=== PATIENT | male | born 1960 | race Caucasian/White ===

== ENCOUNTER 2017-06-02 12:28 | Day surgery (SDC) | payer BC ==
[2017-06-01 13:21] VITALS: BMI 25.4
[~2017-06-02] VITALS: Ht 170.2 cm; Wt 68.9 kg
[~2017-06-02 12:28] MED LIST: ALLO300T2 PO; ATOR20TA38 PO; CITA10TA84 PO
[2017-06-02] MEDS ORDERED: ATOR10TA65 PO (12:53)
[2017-06-02] MEDS ORDERED: SOD CHLORIDE 0.9% 1,000 ML IV ONE (13:00)
[2017-06-02] MEDS ORDERED: CEFAZOLIN 2 GM/50 ML (PMX) 50 ML IVPB ONE (13:00)
[2017-06-02 13:22] LABS: BASOPHILS % 0.4 % (0.0-2.0); EOSINOPHILS # 0.1 10^3/ul (0.0-0.5); HEMATOCRIT 45.9 % (42.0-52.0); HEMOGLOBIN 15.9 g/dl (14.0-18.0); LYMPHOCYTES # 1.1 10^3/ul (0.8-2.9); MEAN CORPUSCULAR HEMOGLOBIN 31.1 pg (29.0-33.0); MEAN CORPUSCULAR HGB CONC 34.6 g/dl (32.0-37.0); MEAN CORPUSCULAR VOLUME 89.6 fl (82.0-101.0); MEAN PLATELET VOLUME 9.8 fl (7.4-10.4); MONOCYTE # 0.4 10^3/ul (0.3-0.9); MONOCYTES % 7.5 % (0.0-11.0); NEUTROPHIL # 3.3 10^3/ul (1.6-7.5); NEUTROPHILS % 68.9 % (39.0-77.0); PLATELET COUNT 185 10^3/UL (140-415); RED BLOOD COUNT 5.12 10^6/ul (4.70-6.10); RED CELL DISTRIBUTION WIDTH 11.9 % (11.5-14.5); WHITE BLOOD COUNT 4.8 10^3/ul (4.8-10.8)
--- NOTE | 2017-06-02 13:26 | RADRPT ---
PROCEDURE: XR Chest. CLINICAL INDICATION: Preoperative TECHNIQUE: Single frontal view of the chest was obtained COMPARISON: None FINDINGS: The heart and mediastinum are within normal limits. The lungs are clear. There is no pleural effusion or pneumothorax. RPTAT: AA IMPRESSION: No acute disease. .Zachariah Umanzor MD, Date Time Electronically viewed and signed by .Zachariah Umanzor MD, on 06/02/2017 13:26 .S/
[2017-06-02 13:27] VITALS: Ht 170.2 cm; Wt 68.9 kg
[2017-06-02 13:31] VITALS: BP 109/65; PULSE 65; RESP 15
[2017-06-02 13:36] LABS: INR 1.09; PROTIME 14.1 Sec (12.2-14.2); PT RATIO 1.1
[2017-06-02 13:37] LABS: PARTIAL THROMBOPLASTIN TIME 31.7 Sec (25.0-35.0)
[2017-06-02 13:41] LABS: ALBUMIN 4.1 g/dl (3.3-4.9); ALBUMIN/GLOBULIN RATIO 1.64; BILIRUBIN,INDIRECT 1.2 mg/dl (0-1.1); BILIRUBIN,TOTAL 1.2 mg/dl (0.2-1.3); TOTAL PROTEIN 6.6 g/dl (6.1-8.1)
[2017-06-02 13:42] LABS: CALCIUM 9.4 mg/dl (8.4-10.2); CREATININE 0.96 mg/dl (0.61-1.24); POTASSIUM 4.2 mmol/L (3.5-5.1)
[2017-06-02] MEDS ORDERED: IOHEXOL 300MG/ML 150 ML BTL ONE (16:15)
[2017-06-02] MEDS ORDERED: SOD CHLORIDE 0.9% 100 ML ONE (16:15)
--- NOTE | 2017-06-02 17:00 | RADRPT ---
PROCEDURE: CT abdomen and pelvis with contrast. CLINICAL INDICATION: Gallbladder mass. TECHNIQUE: CT scan of the abdomen and pelvis with contrast was performed after the uneventful intrav enous administration of 90 cc of Omnipaque-300. Coronal and sagittal reformatted images were obtaine d from the axial source images. The total exam CTDI equals 7.76 mGy and the total exam DLP equals 42 7.08 mGy-cm. DICOM images are available. One or more of the following dose reduction techniques were used: - Automated exposure control. - Adjustment of the mA and/or kV according to patient size. - Use of iterative reconstruction technique. COMPARISON: None available. FINDINGS: Visualized lower thorax: The visualized lung bases are clear. The visualized heart is unremarkable. Hepatobiliary system and spleen: There is an indeterminate 2.6 cm hypodense lesion that appears to demonstrate peripheral nodular enhancement in segment 7 of the liver. No additional focal hepatic le last is identified. There is no intra or extrahepatic biliary ductal dilatation. There is an approxi mately 13 mm hyperdense lesion at the gallbladder fundus. There are no radiopaque gallstones. The sp kevin is unremarkable. The pancreas is unremarkable. Adrenal glands and genitourinary system: The adrenal glands are unremarkable. There are no renal ma sses or hydronephrosis. The urinary bladder is unremarkable. The prostate gland is enlarged measurin g 5.8 cm in diameter. The seminal vesicles are unremarkable. Gastrointestinal system: There is no bowel wall thickening or evidence of obstruction. The appendix is not identified, but there is no focal inflammatory process in the right lower quadrant. Peritoneum, vascular system, lymphatics: There is trace free fluid layering within the pelvis. Ther e is no free intraperitoneal air. There is no mesenteric or retroperitoneal adenopathy. There are at herosclerotic changes of the aorta, which is nonaneurysmal. Musculoskeletal system and soft tissues: There are multilevel Schmorl's nodes throughout the thorac olumbar spine. There are no concerning osseous lesions. The soft tissues are unremarkable. IMPRESSION: 1. Hyperdense 11 mm lesion at the gallbladder fundus, which is nonspecific. Right upper quadrant ul trasound is recommended for further evaluation. 2. Indeterminate 2.6 cm lesion in segment 7 of the liver with imaging characteristics suggestive of a hemangioma. This can also be further characterized with ultrasound. 3. Enlarged prostate gland. Correlate with PSA. 4. Trace free fluid layering within the pelvis, which is nonspecific. RPTAT: HLBP .Fawad Mcmahon MD, Date Time Electronically viewed and signed by .Fawad Mcmahon MD, on 06/02/2017 17:00 .P/
--- NOTE | 2017-06-03 13:18 | RADRPT ---
Vent Rate: 64 bpm RR Interval: 0 msec NH Interval: 150 msec QRS Duration: 94 msec QT Interval: 392 msec QTC Interval: 404 msec P-R-T [place]: 56 - 84 - 66 degrees Normal sinus rhythm Normal ECG Electronically Signed By: Fito Gary [id number]
== END 2017-06-02 16:50 | disposition home or self-care (01) ==
LOC: SUR 12:28 → SDS 12:28 → SUR 16:50
PROVIDERS: ATTEND Surgery Surgical Oncology
DX: K82.9 Disease of gallbladder, unspecified (principal); Z53.9 Procedure and treatment not carried out, unspecified reason
CPT/HCPCS: 71010; 74177; 80053; 85025; 85610; 85730; 93005; Q9967; Z7610

== ENCOUNTER 2017-06-30 08:44 | Inpatient (IN) | payer BC ==
[2017-06-29 12:49] VITALS: BMI 26.0
[2017-06-30] VITALS (36 sets, daily range): BP systolic 111–139; BP diastolic 66–89; PULSE 54–80; RESP 7–18; Ht 175.3 cm; Wt 71.3 kg
[~2017-06-30] VITALS: Ht 175.3 cm; Wt 71.3 kg
[~2017-06-30 08:44] MED LIST changes: +ATOR10TA65 PO; -ATOR20TA38 PO; +CEFAZOLIN 2 GM/50 ML (PMX) 50 ML IVPB SCH; +SOD CHLORIDE 0.9% 1,000 ML IV SCH
[2017-06-30 10:02] LABS: BASOPHILS % 0.4 % (0.0-2.0); EOSINOPHILS % 0.8 % (0.0-7.0); HEMOGLOBIN 15.4 g/dl (14.0-18.0); LYMPHOCYTES % 20.4 % (15.0-51.0); MEAN CORPUSCULAR HEMOGLOBIN 31.2 pg (29.0-33.0); MEAN CORPUSCULAR VOLUME 89.1 fl (82.0-101.0); MEAN PLATELET VOLUME 10.1 fl (7.4-10.4); MONOCYTE # 0.4 10^3/ul (0.3-0.9); MONOCYTES % 7.5 % (0.0-11.0); NEUTROPHIL # 3.4 10^3/ul (1.6-7.5); NEUTROPHILS % 70.7 % (39.0-77.0); PLATELET COUNT 216 10^3/UL (140-415); RED BLOOD COUNT 4.94 10^6/ul (4.70-6.10); RED CELL DISTRIBUTION WIDTH 12.1 % (11.5-14.5); WHITE BLOOD COUNT 4.8 10^3/ul (4.8-10.8)
[2017-06-30 10:16] LABS: ALBUMIN 3.8 g/dl (3.3-4.9); ALBUMIN/GLOBULIN RATIO 1.31; BILIRUBIN,INDIRECT 1.1 mg/dl (0-1.1); BILIRUBIN,TOTAL 1.1 mg/dl (0.2-1.3); TOTAL PROTEIN 6.7 g/dl (6.1-8.1)
[2017-06-30 10:17] LABS: CALCIUM 9.5 mg/dl (8.4-10.2); CREATININE 0.86 mg/dl (0.61-1.24); POTASSIUM 4.2 mmol/L (3.5-5.1)
[2017-06-30 10:20] LABS: INR 1.03; PROTIME 13.6 Sec (11.9-14.9); PT RATIO 1.1
[2017-06-30] MEDS ORDERED: PROPOFOL 20 ML ONE (10:27)
[2017-06-30] MEDS ORDERED: MEPERIDINE 100 MG INJ ONE (10:27)
[2017-06-30] MEDS ORDERED: GLYCOPYRROLATE 0.4 MG INJ ONE ×2 (10:27→12:08)
[2017-06-30] MEDS ORDERED: ROCURONIUM 50 MG INJ ONE ×2 (10:27→12:08)
[2017-06-30] MEDS ORDERED: LIDOCAINE 2% (SDV) 5 ML INJ ONE (10:27)
[2017-06-30] MEDS ORDERED: SUCCINYLCHOLINE CHLORIDE 100 MG/5 ML SYG IV ONE (10:27)
[2017-06-30] MEDS ORDERED: NEOSTIGMINE 3 MG/3 ML SYRINGE ONE ×2 (10:27→12:08)
[2017-06-30] MEDS ORDERED: HYDROmorphONE (0.2 MG/ML) 10ML SYG IV PRN ×2 (11:00)
[2017-06-30] MEDS ORDERED: METOCLOPRAMIDE 10 MG INJ IV PRN (11:00)
[2017-06-30] MEDS ORDERED: OXYCODONE/ACETAMINOPHEN (5/325) TAB PO PRN ×2 (11:00)
[2017-06-30] MEDS ORDERED: MEPERIDINE 25 MG INJ IV PRN (11:00)
[2017-06-30] MEDS ORDERED: LABETALOL HCL 20MG INJ IV PRN (11:00)
[2017-06-30] MEDS ORDERED: DIPHENHYDRAMINE 50 MG INJ IV PRN (11:00)
[2017-06-30] MEDS ORDERED: EPHEDrine SULFATE 50 MG/5 ML SYG IV PRN (11:00)
[2017-06-30] MEDS ORDERED: ONDANSETRON 4 MG INJ IV PRN (11:00)
[2017-06-30] MEDS ORDERED: MIDAZOLAM 1 MG/ML 2 ML INJ IV PRN (11:00)
[2017-06-30] MEDS ORDERED: hydrALAzine 20 MG INJ IV PRN (11:00)
[2017-06-30] MEDS ORDERED: FENTAnyl 50 MCG/ML VIAL IV PRN ×3 (11:00)
[2017-06-30] MEDS ORDERED: CEFAZOLIN 1 GM INJ ONE (11:05)
[2017-06-30] MEDS ORDERED: SUGAMMADEX SODIUM 200 MG/2 ML VIAL IV ONE (12:23)
--- NOTE | 2017-06-30 12:43 | SIPON ---
Date/Time of Note Date/Time of Note DATE: 06/30/17 TIME: 12:41 Operative Report Preoperative Diagnosis Gallbladder mass Postoperative Diagnosis Same Operation/Procedure Performed Laparoscopic cholecystectomy with en bloc resection of portion of liver and gallbladder fossa Surgeon see signature line ward assistant Dr Babcock Anesthesia: general Estimated blood loss: 10 - 50 ml's Transfusion Required none Specimen Gallbladder with attached portion of liver from gallbladder fossa Grafts/Implants none Complications none ANASTACIO DRAPER MD Jun 30, 2017 12:43
[2017-06-30] MEDS: HYDROmorphONE (0.2 MG/ML) 10ML SYG IV PRN ×5 (12:57→13:39)
[2017-06-30] MEDS ORDERED: ACETAMINOPHEN 1000MG/100ML IV 100 ML IVPB PRN (13:00)
--- NOTE | 2017-06-30 16:51 | RADRPT ---
PROCEDURE: XR Chest. CLINICAL INDICATION: Preoperative evaluation. TECHNIQUE: Chest x-ray, single view. COMPARISON: CHEST 06/02/2017. FINDINGS: The cardiomediastinal silhouette is normal. The lungs are clear. Skeletal structures are unremarka ble. The visualized upper abdomen is unremarkable. IMPRESSION: Unremarkable chest x-ray. RPTAT: AAQQ .Brenda Arias MD, MD Date Time Electronically viewed and signed by .Brenda Arias MD, on 06/30/2017 09:45 .T/
--- NOTE | 2017-06-30 16:55 | OPR ---
DATE OF OPERATION: 06/30/2017 PREOPERATIVE DIAGNOSIS: Mass fundus of gallbladder, rule out malignancy. POSTOPERATIVE DIAGNOSIS: Mass fundus of gallbladder, rule out malignancy. OPERATION PERFORMED: Laparoscopic cholecystectomy with en bloc resection of portion of the gallblad marleny fossa. ANESTHESIA: General. ANESTHESIOLOGIST: MELISSA Pittman MD SURGEON: Pedro Pablo Lubin MD DIRECTOR OF DIRECT MARKETING: Dr. iTmo Hansen. INDICATIONS FOR PROCEDURE: The patient is a 57-year-old male who presented with right upper quadran t pain. Workup with MRI revealed evidence of an enhancing 1.4 cm mass in the fundus within the gall bladder. A CAT scan was also performed and again confirmed the mass with no definite evidence of ly mphadenopathy. The patient was counseled as to need for en bloc resection of the gallbladder with a portion of the liver. He was counseled on possibility to accomplish this laparoscopically, but he was also consented for possible conversion to open. He consented and was scheduled for surgery. DESCRIPTION OF PROCEDURE: The patient was brought to the operating theater, placed under general en dotracheal tube anesthesia. The abdomen was shaved, prepped and draped in usual sterile fashion. A 2-cm incision was made in the midline just above the umbilicus. Subcutaneous tissue was dissected with cautery down to the anterior rectus sheath, 0 Vicryl stay sutures were placed on either side of the linea alba. The linea alba was incised and the abdomen was entered without difficulty. Ralph trocar was then placed in standard fashion. The abdomen was insufflated to approximately 14 mmHg w ith carbon dioxide. Laparoscope was introduced. Attention was directed to the right upper quadrant . The 3 accessory ports were then placed under direct vision in standard fashion. Attention was then directed to the right upper quadrant. The gallbladder was identified, it was olga ewhat thickened wall with omental adhesions. It was grasped through the lateral port sites on the f undus and neck and retracted cephalad and lateral with combination of blunt dissection and cautery. The adhesions were taken down. The peritoneum overlying the gallbladder was then incised both medi ally and laterally to facilitate mobilization of the triangle of [place]. With meticulous dissection, the cystic duct was isolated. Two clips were placed across it distally. It was then transected wi th the endovascular FABRICIO stapler. Subsequently, cystic artery was isolated. Two clips were placed a cross it distally and it also was transected with endovascular FABRICIO stapler. Dissection of the gallb ladder out of the gallbladder fossa took place at a distance approximately 1 to 2 cm beyond the neck of the gallbladder. Dissection of the liver bed in the region of the gallbladder fossa took place using cautery in an effort to ensure a margin of liver tissue around the region of the polyp. This was accomplished with meticulous dissection that took place uneventfully. The final connective tiss ue attachments to the gallbladder were then transected. The laparoscope was moved to the 12-mm subc ostal port site, and the gallbladder was retrieved from the umbilical port site using the gallbladde r retrieval bag. The Ralph trocar was placed back into the abdomen. The laparoscope was moved kirt k to the umbilical port. The liver bed was inspected. Minimal bleeding was controlled with cautery . At this point, Dr. Lubin call pathology into the room grossly analyze the gallbladder. Gallbladd er was opened and the polyp was identified. It did not have classically malignant features and due to the fact that adequate margin of liver was also resected, Dr. Lubin made the decision that no fur ther liver resection was necessary. The gallbladder was then sent for permanent pathologic analysis . Final irrigation and inspection took place. There was no evidence of bleeding. The 3 accessory ports were then removed under direct vision. Again, there was no evidence of bleeding. Finally, th e umbilical port was removed. The midline umbilical fascia was reapproximated with 0 Prolene suture s in [id number] fashion. All wounds were irrigated with Betadine and skin incisions were reapp roximated with skin nila. Patient tolerated procedure well. The estimated blood loss was approx imately 20 mL. There were no complications and the patient was transported in stable condition to [facility] recovery room. Dictated By: PEDRO PABLO LUBIN MD TL/ALBIN Conf#: [id number] DID#: [id number] CC: TIMO HANSEN MD;*EndCC*
[2017-06-30] MEDS: D5W-0.45 NACL + KCL 20 MEQ 1,000 ML IV SCH ×2 (17:39→20:43)
[2017-06-30] MEDS: morphine 2 MG INJ IV PRN ×2 (17:41→21:10)
[2017-06-30] MEDS: ONDANSETRON 4 MG INJ IV PRN (17:55)
--- NOTE | 2017-06-30 20:18 | HP ---
DATE OF ADMISSION: 06/30/2017 HISTORY OF PRESENT ILLNESS: The patient is a very pleasant 57-year-old gentleman with past medical history positive for hepatitis B, gout and hyperlipidemia. Patient was undergoing MRI scan for eval uation of liver due to history of hepatitis, and patient was found to have enhancing mass in the gal lbladder, which was worrisome for malignancy. The patient was evaluated by Dr. Lubin in surgical co nsultation, and patient was brought to the hospital and underwent laparoscopic cholecystectomy with en bloc resection of portion of liver and gallbladder fossa. Postoperatively, patient experienced m oderate pain, and patient is admitted for further evaluation and management. PAST MEDICAL HISTORY: Positive for hepatitis B, hypercholesterolemia and gout. PAST SURGICAL HISTORY: Patient is status post appendectomy more than 40 years ago, and status post colonoscopy by Dr. Patterson in December 2015 with notion of hemorrhoids. FAMILY HISTORY: Negative for history of cancer. SOCIAL HISTORY: The patient lives at home with his family. The patient denies any tobacco use, den ies any alcohol use, denies any illicit drug use. ALLERGIES: NO KNOWN ALLERGIES. HOME MEDICATIONS: Include: 1. Allopurinol. 2. Atorvastatin. 3. Citalopram. REVIEW OF SYSTEMS: A 12-point review of systems is negative unless what is mentioned in the HPI. PHYSICAL ASSESSMENT: GENERAL: Well-developed, well-nourished male in no acute distress. VITAL SIGNS: Temperature is 97.7, pulse is 84, blood pressure is 137/84, respiratory rate 18, oxyge n saturation 96% on room air. HEENT: Head is atraumatic, normocephalic. Pupils equal, round, reactive to light and accommodation . Oral mucosa is pink and moist. NECK: Supple. No cervical lymphadenopathy. No thyromegaly. CHEST: Lungs clear bilaterally. There are no rhonchi, wheezes or rales noted. CARDIOVASCULAR: Normal S1, S2. No murmurs, gallops, clicks, rubs noted. ABDOMEN: Status post surgery with laparoscopic surgical incisions intact with bandages. Bowel soun ds are hypoactive. EXTREMITIES: No edema, clubbing, cyanosis. Pulses equal bilaterally 2+. SKIN: There is no rash, petechiae noted. NEUROLOGIC: Patient is awake, alert and oriented x4. No focal deficits noted. Motor strength 5/5 in all extremities. LABORATORY DATA: On admission, CBC: White blood cells 4.8, hemoglobin 15.4, hematocrit 44.0, plate lets 216. Chemistry: Sodium is 141, potassium 4.2, chloride 106, carbon dioxide 28, anion gap is 1 1, BUN is 9, creatinine 0.86, glucose 103, calcium 9.5, AST is 47, ALT is 59, alkaline phosphatase 6 5. PT is 13.6, INR is 1.03, APTT is 31.0. Chest x-ray is unremarkable. ASSESSMENT AND PLAN: 1. Gallbladder mass, status post laparoscopic cholecystectomy with en bloc resection of portion of liver and gallbladder fossa by Dr. Lubin on 06/30/2017. I will continue IV fluids and postoperative antibiotics. Continue Zofran for nausea and morphine and [place] p.r.n. for pain. We will follow up on gallbladder mass pathology. 2. Hyperlipidemia. 3. Gout. 4. History of hepatitis B. Plan of care discussed with patient and patient's at the bedside. We will continue sequential compression device for deep venous thrombosis prophylaxis. Further recommendations based on clinica l course. Plan of care discussed with Dr. Munroe. Dictated By: ANDREA SENA SUPERVISOR BILLPOSTING for ATA MUNROE MD SR/NTS Conf#: [id number] DID#: [id number] CC: ANASTACIO LUBIN MD;*End*
[2017-06-30] MEDS: HYDROCODONE/APAP (5/325) TAB PO PRN (21:09)
[2017-07-01] MEDS: D5W-0.45 NACL + KCL 20 MEQ 1,000 ML IV SCH ×2 (01:50→10:13)
[2017-07-01 02:29] VITALS: BP 103/71; RESP 18
[2017-07-01] MEDS: HYDROCODONE/APAP (5/325) TAB PO PRN (03:31)
[2017-07-01] MEDS: morphine 2 MG INJ IV PRN ×2 (03:31→05:50)
[2017-07-01] MEDS: ONDANSETRON 4 MG INJ IV PRN ×2 (05:50→15:19)
[2017-07-01 06:31] LABS: BASOPHILS % 0.3 % (0.0-2.0); EOSINOPHILS % 0.3 % (0.0-7.0); HEMATOCRIT 42.9 % (42.0-52.0); HEMOGLOBIN 14.7 g/dl (14.0-18.0); LYMPHOCYTES # 0.8 10^3/ul (0.8-2.9); LYMPHOCYTES % 10.1 % (15.0-51.0); MEAN CORPUSCULAR HEMOGLOBIN 31.2 pg (29.0-33.0); MEAN CORPUSCULAR HGB CONC 34.3 g/dl (32.0-37.0); MEAN CORPUSCULAR VOLUME 91.1 fl (82.0-101.0); MONOCYTE # 0.6 10^3/ul (0.3-0.9); MONOCYTES % 7.6 % (0.0-11.0); NEUTROPHIL # 6.5 10^3/ul (1.6-7.5); NEUTROPHILS % 81.3 % (39.0-77.0); PLATELET COUNT 217 10^3/UL (140-415); RED BLOOD COUNT 4.71 10^6/ul (4.70-6.10); RED CELL DISTRIBUTION WIDTH 11.9 % (11.5-14.5)
[2017-07-01 07:02] LABS: CALCIUM 8.7 mg/dl (8.4-10.2); CREATININE 1.01 mg/dl (0.61-1.24); POTASSIUM 4.2 mmol/L (3.5-5.1)
[2017-07-01 08:00] VITALS: BP 101/60; RESP 17
[2017-07-01 14:00] VITALS: BP 133/87; RESP 18
[2017-07-01] MEDS ORDERED: HYDR-3498 PO (16:57)
[2017-07-01] MEDS ORDERED: DOCU-144 PO (16:57)
[2017-07-01] MEDS ORDERED: ONDA-43 PO (16:57)
[2017-07-01] MEDS ORDERED: BISACODYL (EC) 5 MG TAB PO ONE (17:00)
--- NOTE | 2017-07-02 01:40 | PN ---
DATE: 07/01/2017 CHIEF COMPLAINT: Status post laparoscopic cholecystectomy, postoperative day #1. SUBJECTIVE: Complains of abdominal pain, distention and shoulder pain. Has been nauseous. Has received some me dication for that. OBJECTIVE: GENERAL: Alert, awake, oriented x3. VITAL SIGNS: Temperature 98.3, heart rate 74, respirations 17, blood pressure 101/60, saturation 97 % on room air. LABORATORY DATA: Today, WBC 8000 with 81% neutrophils. Hemoglobin and hematocrit is stable. Chemistry: Sodium, pot assium, BUN, creatinine normal. ABDOMEN: Slightly distended lower part, some voluntary guarding. Bowel sounds 3+/4+. LEGS: No calf tenderness. ASSESSMENT: Postop day #1 status post laparoscopic cholecystectomy. Appears that he is stable, only has tolerat ed liquid diet. We are going to advance the diet for lunch; if the patient tolerates and has a mari l movement or passes gas, then the patient can be discharged home today. Dictated By: KINA HANSEN MD PS/NTS Conf#: [id number] DID#: [id number] CC: ANASTACIO DRAPER MD;*EndCC*
--- NOTE | 2017-07-02 18:50 | RADRPT ---
Vent Rate: 70 bpm RR Interval: 0 msec [place] Interval: 152 msec QRS Duration: 92 msec QT Interval: 378 msec QTC Interval: 408 msec P-R-T [place]: 58 - 89 - 66 degrees Normal sinus rhythm Normal ECG Electronically Signed By: Long Hicks [id number]
--- NOTE | 2017-07-04 21:48 | DS ---
Date/Time of Note Date/Time of Note DATE: 07/04/17 TIME: 21:46 Discharge Summary Admission/Discharge Info Admit Date/Time Jun 30, 2017 at 12:44 Discharge Date/Time Jul 01, 2017 at 17:55 Patient Condition: Stable Hx of Present Illness The patient is a very pleasant 57-year-old gentleman with past medical history positive for hepatitis B, gout and hyperlipidemia. Patient was undergoing MRI scan for evaluation of liver due to history of hepatitis, and patient was found to have enhancing mass in the gallbladder, which was worrisome for malignancy. The patient was evaluated by Dr. Lubin in surgical consultation, and patient was brought to the hospital and underwent laparoscopic cholecystectomy with en bloc resection of portion of liver and gallbladder fossa. Postoperatively, patient experienced moderate pain, and patient is admitted for further evaluation and management. Hospital Course 1. Gallbladder mass, status post laparoscopic cholecystectomy with en bloc resection of portion of liver and gallbladder fossa by Dr. Lubin on 06/30/2017. Continue IV fluids and postoperative antibiotics. Continue Zofran for nausea and morphine and [place] p.r.n. for pain. 2. Hyperlipidemia. 3. Gout. 4. History of hepatitis B. Home Meds Active Scripts Docusate Sodium* (Colace*) 100 Mg Capsule, 100 MG PO BID, #60 CAP Prov:ANDREA SENA 07/01/17 Ondansetron Hcl* (Zofran*) 4 Mg Tab, 4 MG PO Q6H Y for NAUSEA AND OR VOMITING, # 30 TAB Prov:ANDREA SENA 07/01/17 Hydrocodone Bit-Acetaminophen (Hydrocodone Bit-APAP) 5-325MG Tablet, 1 TAB PO Q6H Y for PAIN, #30 TAB Prov:ANDREA SENA 07/01/17 Reported Medications Atorvastatin Calcium (Atorvastatin Calcium) 10 Mg Tablet, 10 MG PO QHS, #30 TAB 06/02/17 Citalopram Hydrobromide* (Citalopram Hydrobromide*) 10 Mg Tablet, 10 MG PO DAILY , #30 TAB 12/24/15 Allopurinol* (Allopurinol*) 300 Mg Tablet, 300 MG PO DAILY, TAB 12/24/15 Follow-up Plan f/up with Dr Lubin in 1-2 weeks. Primary Care Provider Ngoc Dubose MD Time spent on discharge: > 30 minutes ANDREA SENA Jul 04, 2017 21:48
== END 2017-07-01 17:55 | disposition home or self-care (01) | DRG 419 ==
LOC: SDS 08:44 → REC 12:44 → MS2 16:00
PROVIDERS: ADMIT Surgery Surgical Oncology; ATTEND Surgery Surgical Oncology
PROC: 0FB04ZX Excision of Liver, Percutaneous Endoscopic Approach, Diagnostic (ICD-10-PCS; 2017-06-30)
PROC: 0FT44ZZ Resection of Gallbladder, Percutaneous Endoscopic Approach (ICD-10-PCS; principal; 2017-06-30 10:30)
DX: D37.6 Neoplasm of uncertain behavior of liver, gallbladder and bile ducts (principal)
CPT/HCPCS: 71010; 80048; 80053; 85025; 85610; 85730; 88307; 93005; J0690; J1170; J2175; J2270; J2405; J2710; J3010; J3480